=== PATIENT | female | born 1935 | race Caucasian/White ===

== ENCOUNTER 2016-05-31 21:00 | Inpatient (IN) | payer OTHER ==
[~2016-05-31] VITALS: Ht 172.7 cm; Wt 90.6 kg
[~2016-05-31 21:00] MED LIST: ACID CONTROL150 MG PO; ADVAIR 250/501 DISK IH; ADVAIR HFA120 INHAL1 IH; ASCORBIC ACID500 M3 PO; ASPIRIN81 M1 PO; ATENOLOL50 MG PO; ATORVASTATIN CA10 MG PO; CATAPRES0.1 MG PO; CEPHALEXIN250 MG PO; CIPRO250 MG PO; CLONIDINE HCL0.1 MG PO; COMBIVENT200 INHALA; COREG12.5 M1 PO; COUMADIN4 MG PO; COZAAR100 MG PO; CYMBALTA30 MG PO; CYMBALTA60 MG PO; Coumadin,Jantoven PO; DIOVAN320 MG; DIOVAN320 MG PO; DOCUSATE SODIU100 MG PO; FERROUS SULFAT325 MG PO; FIORICET,ESG1 TABLET PO; FORADIL AEROLI12 MCG IH; FORTAMET500 M1 PO; GABAPENTIN300 MG PO; GUANFACINE HCL E2 MG PO; HEPARIN SO5000 UNITS SC; HYDROCHLOROTHIA50 MG PO; INTUNIV2 MG PO; KEFLEX500 MG PO; LOSARTAN POTAS100 MG PO; METFORMIN HCL500 M1 PO; METFORMIN HCL500 MG; METFORMIN HCL500 MG PO; METOPROLOL SUCC50 MG PO; MIRALAX17 GM PO; MIRALAX255 GM PO; NIFEDIPINE ER30 MG PO; NORVASC10 MG PO; NYSTATIN15 GM TP; OMEPRAZOLE20 MG PO; PEPCID20 MG PO; PROAIR HFA8.5 GM IH; PROMETHAZINE12.5 M1 PO; Pepcid PO; SPIRIVA1 INHALATI; SPIRIVA1 INHALATI IH; TIZANIDINE HCL4 MG PO; TOPROL XL50 MG PO; TRAMADOL HCL50 MG PO; TRAZODONE HCL50 MG PO; TYLENOL EXTRA500 MG PO; ULTRAM50 MG PO; VITAMIN B-6100 MG PO; VITAMIN D31000 UNIT PO; WARFARIN SODIUM4 MG PO; WYGESIC,DARV1 TABLET PO; XANAX0.25 MG PO; XANAX0.5 MG; Xanax PO; ZANAFLEX4 MG PO
[2016-05-31 21:45] LABS: MCH 28.3 PG (29.0-34.0); MCHC 33.8 G/DL (30.0-36.0); MCV 83.9 FL (83-99); MEAN PLAT.VOLUME 10.8 uM^3 (9.5-12.4); PLATELET COUNT 258 K/uL (156-360); RBC DIS.WIDTH-CV 13.5 % (11.8-14.6); RBC DIS.WIDTH-SD 40.1 % (39-53); RED BLOOD COUNT 4.41 M/uL (3.80-5.20); WHITE BLOOD COUNT 8.1 K/uL (4.1-10.2)
[2016-05-31 22:03] LABS: CHLORIDE 92 mEq/L (99-109); POTASSIUM 4.3 mEq/L (3.7-5.4); SODIUM 127 mEq/L (136-147)
[2016-05-31 22:04] LABS: GLUCOSE 185 mg/dL (70-99)
[2016-05-31 22:06] LABS: ANION GAP 11 MEQ/L (2-14)
[2016-05-31 22:08] LABS: GFR ESTIMATE (CALCULATED) > 59 mL/min/; TROP-I INTERPRETATION NEGATIVE; TROPONIN-I 0.02 ng/mL (0.0-0.30)
[2016-05-31 22:09] LABS: UREA NITROGEN (BUN) 11 mg/dL (9-23)
[2016-06-01 01:00] LABS: INTER. NORMALIZED RATIO 1.2; PROTHROMBIN TIME 12.4 (9.2-11.2)
[2016-06-01] MEDS ORDERED: FEOSOL325 MG PO (01:28)
[2016-06-01] MEDS ORDERED: COUMADIN1 MG PO (01:29)
[2016-06-01] MEDS ORDERED: COREG25 M1 PO (01:30)
[2016-06-01] MEDS ORDERED: APRESOLINE25 MG PO (01:30)
[2016-06-01] MEDS ORDERED: PROCARDIA XL30 MG PO (01:31)
[2016-06-01] MEDS ORDERED: FLONASE16 G1 BOTH NARES (01:32)
[2016-06-01] MEDS ORDERED: ROBAXIN500 MG PO (01:32)
[2016-06-01] MEDS ORDERED: ARTIFICIAL TEAR15 M6 BOTH EYES (01:35)
[2016-06-01] MEDS ORDERED: TYLENOL EXTRA500 MG PO (01:36)
[2016-06-01] MEDS ORDERED: COLACE100 MG PO (01:37)
[2016-06-01] MEDS ORDERED: NYSTATIN15 GM TP (01:39)
[2016-06-01] MEDS ORDERED: METFORMIN HCL500 M1 PO (01:39)
[2016-06-01 07:31] VITALS: BP 131/69
[2016-06-01 07:57] LABS: POINT-OF-CARE METER ID UU14174225
[2016-06-01 11:10] LABS: POINT-OF-CARE METER ID UU14174225
[2016-06-01 11:12] VITALS: BP 152/79
[2016-06-01 13:30] LABS: ANION GAP 7 MEQ/L (2-14); CHLORIDE 92 MEQ/L (99-109); GFR ESTIMATE (CALCULATED) > 59 mL/min/; GLUCOSE 155 mg/dL (70-99); POTASSIUM 4.3 MEQ/L (3.7-5.4); SAMPLE HEMOLYSIS CHECK 0; SAMPLE ICTERIC CHECK 0; SAMPLE LIPEMIA CHECK 0; SODIUM 124 MEQ/L (136-147); UREA NITROGEN (BUN) 9 mg/dL (9-23)
[2016-06-01 15:06] VITALS: BP 139/67
[2016-06-01 16:08] LABS: ANION GAP 6 MEQ/L (2-14); CHLORIDE 93 MEQ/L (99-109); GFR ESTIMATE (CALCULATED) > 59 mL/min/; GLUCOSE 150 mg/dL (70-99); POTASSIUM 4.2 MEQ/L (3.7-5.4); SAMPLE HEMOLYSIS CHECK 1; SAMPLE ICTERIC CHECK 0; SAMPLE LIPEMIA CHECK 0; SODIUM 124 MEQ/L (136-147); UREA NITROGEN (BUN) 9 mg/dL (9-23)
[2016-06-01 16:19] LABS: POINT-OF-CARE METER ID UU14174225
[2016-06-01 20:00] VITALS: BP 155/69
[2016-06-01 22:12] LABS: POINT-OF-CARE METER ID UU14174225
[2016-06-02] VITALS: BP 139/70
[2016-06-02 04:00] VITALS: BP 135/62
[2016-06-02 07:16] VITALS: BP 174/77
[2016-06-02 07:33] LABS: POINT-OF-CARE METER ID UU14188625
[2016-06-02 07:56] LABS: EOSINOPHIL (%) 0.2 % (0-5); HEMATOCRIT 31.5 % (36.0-46.0); IMMATURE GRANULOCYTE (%) 0.2 % (0.0-0.7); LYMPHOCYTE COUNT 1.4 K/uL (1.0-2.8); MCH 28.6 PG (29.0-34.0); MCHC 33.7 G/DL (30.0-36.0); MCV 85.1 FL (83-99); MEAN PLAT.VOLUME 11.1 uM^3 (9.5-12.4); MONOCYTE (%) 9.6 % (3-12); MONOCYTE COUNT 0.5 K/uL (0-0.8); NEUTROPHIL (%) 63.2 % (45-76); NEUTROPHIL COUNT 3.4 K/uL (1.8-6.4); PLATELET COUNT 230 K/uL (156-360); RBC DIS.WIDTH-CV 13.7 % (11.8-14.6); RBC DIS.WIDTH-SD 42.3 % (39-53)
[2016-06-02 07:57] LABS: WHITE BLOOD COUNT 5.4 K/uL (4.1-10.2)
[2016-06-02 08:01] LABS: ANION GAP 6 MEQ/L (2-14); CHLORIDE 97 MEQ/L (99-109); GFR ESTIMATE (CALCULATED) > 59 mL/min/; GLUCOSE 123 mg/dL (70-99); POTASSIUM 3.9 MEQ/L (3.7-5.4); SAMPLE HEMOLYSIS CHECK 0; SAMPLE ICTERIC CHECK 0; SAMPLE LIPEMIA CHECK 0; SODIUM 128 MEQ/L (136-147); UREA NITROGEN (BUN) 10 mg/dL (9-23)
[2016-06-02 11:01] VITALS: BP 171/75
[2016-06-02 11:11] LABS: POINT-OF-CARE METER ID UU14174225
[2016-06-02 14:58] VITALS: BP 174/81
[2016-06-02 16:09] LABS: POINT-OF-CARE METER ID UU14174225
[2016-06-02 20:31] VITALS: BP 220/90
[2016-06-02 22:01] LABS: POINT-OF-CARE METER ID UU14174225
[2016-06-03] VITALS (7 sets, daily range): BP systolic 110–180; BP diastolic 58–92
[2016-06-03 06:59] LABS: ANION GAP 8 MEQ/L (2-14); CHLORIDE 98 MEQ/L (99-109); GFR ESTIMATE (CALCULATED) > 59 mL/min/; GLUCOSE 139 mg/dL (70-99); POTASSIUM 4.4 MEQ/L (3.7-5.4); SAMPLE HEMOLYSIS CHECK 1; SAMPLE ICTERIC CHECK 0; SAMPLE LIPEMIA CHECK 0; SODIUM 132 MEQ/L (136-147); UREA NITROGEN (BUN) 8 mg/dL (9-23)
[2016-06-03 08:18] LABS: HEMATOCRIT 33.8 % (36.0-46.0); MCH 28.5 PG (29.0-34.0); MCHC 33.4 G/DL (30.0-36.0); MCV 85.1 FL (83-99); MEAN PLAT.VOLUME 11.7 uM^3 (9.5-12.4); PLATELET COUNT 214 K/uL (156-360); RBC DIS.WIDTH-CV 13.8 % (11.8-14.6); RBC DIS.WIDTH-SD 42.6 % (39-53); RED BLOOD COUNT 3.97 M/uL (3.80-5.20); WHITE BLOOD COUNT 5.9 K/uL (4.1-10.2)
[2016-06-03 12:38] LABS: POINT-OF-CARE METER ID UU14174225
[2016-06-03 15:17] LABS: INTER. NORMALIZED RATIO 1.3; PROTHROMBIN TIME 12.8 (9.2-11.2)
[2016-06-03 22:04] LABS: POINT-OF-CARE METER ID UU14174225; POINT-OF-CARE USER ID 603211116
[2016-06-04 04:50] VITALS: BP 141/78
[2016-06-04 07:05] LABS: HEMATOCRIT 33.5 % (36.0-46.0); MCH 28.9 PG (29.0-34.0); MCHC 33.7 G/DL (30.0-36.0); MCV 85.7 FL (83-99); MEAN PLAT.VOLUME 10.6 uM^3 (9.5-12.4); PLATELET COUNT 229 K/uL (156-360); RBC DIS.WIDTH-CV 13.8 % (11.8-14.6); RBC DIS.WIDTH-SD 42.8 % (39-53); RED BLOOD COUNT 3.91 M/uL (3.80-5.20); WHITE BLOOD COUNT 5.7 K/uL (4.1-10.2)
[2016-06-04 07:16] LABS: INTER. NORMALIZED RATIO 1.3; PROTHROMBIN TIME 12.9 (9.2-11.2)
[2016-06-04 07:28] LABS: ANION GAP 9 MEQ/L (2-14); CHLORIDE 94 MEQ/L (99-109); GFR ESTIMATE (CALCULATED) > 59 mL/min/; GLUCOSE 113 mg/dL (70-99); POTASSIUM 4.1 MEQ/L (3.7-5.4); SAMPLE HEMOLYSIS CHECK 0; SAMPLE ICTERIC CHECK 0; SAMPLE LIPEMIA CHECK 0; SODIUM 134 MEQ/L (136-147); UREA NITROGEN (BUN) 8 mg/dL (9-23)
[2016-06-04 07:43] VITALS: BP 157/73
[2016-06-04 11:29] LABS: POINT-OF-CARE METER ID UU14174225
[2016-06-04 12:33] VITALS: BP 101/52
[2016-06-04] MEDS ORDERED: WARFARIN SODIUM1 MG PO (15:03)
[2016-06-04] MEDS ORDERED: METRONIDAZOLE500 MG PO (15:03)
[2016-06-04] MEDS ORDERED: LOVENOX40 MG/0.4 SC (15:03)
== END 2016-06-04 16:35 | disposition home health service (06) | DRG 641 ==
LOC: EME 21:00 → 5SOUTH 06-01 05:38 → EDOF 06-01 05:38 → 5SOUTH 06-01 07:01
PROVIDERS: Hospitalist; Physician Assistant; Student in an Organized Health Care Education/Training Program
DX: E87.1 Hypo-osmolality and hyponatremia (principal); J44.0 Chronic obstructive pulmonary disease with (acute) lower respiratory infection; J20.9 Acute bronchitis, unspecified; E86.0 Dehydration; R41.82 Altered mental status, unspecified; I10 Essential (primary) hypertension; I25.10 Atherosclerotic heart disease of native coronary artery without angina pectoris; Z95.5 Presence of coronary angioplasty implant and graft; E78.5 Hyperlipidemia, unspecified; Z96.642 Presence of left artificial hip joint; E11.9 Type 2 diabetes mellitus without complications; R11.2 Nausea with vomiting, unspecified; F32.9 Major depressive disorder, single episode, unspecified; G43.909 Migraine, unspecified, not intractable, without status migrainosus; K59.00 Constipation, unspecified
CPT/HCPCS: 70450; 71020; 74176; 80048; 80048 91; 81003; 82948; 84484; 85025; 85027; 85610; 87493; 93005; 97530 GP; 99202; 99281; 99285; J0360; J1170; J1644; J1815; J2270; J2405; J7030; S0028; S0030

== ENCOUNTER 2016-06-13 13:06 | Inpatient (IN) | payer OTHER ==
[~2016-06-13] VITALS: Ht 162.6 cm; Wt 87.0 kg
[~2016-06-13 13:06] MED LIST changes: +APRESOLINE25 MG PO; +ARTIFICIAL TEAR15 M6 BOTH EYES; +COLACE100 MG PO; +COREG25 M1 PO; +COUMADIN1 MG PO; +FEOSOL325 MG PO; +FLONASE16 G1 BOTH NARES; +LOVENOX40 MG/0.4 SC; +METRONIDAZOLE500 MG PO; +PROCARDIA XL30 MG PO; +ROBAXIN500 MG PO; +WARFARIN SODIUM1 MG PO
[2016-06-13 13:59] LABS: HEMATOCRIT 35.3 % (36.0-46.0); MCHC 33.7 G/DL (30.0-36.0); MCV 86.1 FL (83-99); MEAN PLAT.VOLUME 10.5 uM^3 (9.5-12.4); PLATELET COUNT 272 K/uL (156-360); RBC DIS.WIDTH-CV 14.5 % (11.8-14.6); RBC DIS.WIDTH-SD 44.6 % (39-53); WHITE BLOOD COUNT 5.5 K/uL (4.1-10.2)
[2016-06-13 14:22] LABS: CHLORIDE 98 mEq/L (99-109); POTASSIUM 5.1 mEq/L (3.7-5.4); SODIUM 130 mEq/L (136-147)
[2016-06-13 14:23] LABS: MAGNESIUM 2.2 mg/dL (1.3-2.7)
[2016-06-13 14:24] LABS: GLUCOSE 160 mg/dL (70-99)
[2016-06-13 14:25] LABS: ANION GAP 10 MEQ/L (2-14)
[2016-06-13 14:28] LABS: GFR ESTIMATE (CALCULATED) > 59 mL/min/; UREA NITROGEN (BUN) 19 mg/dL (9-23)
[2016-06-13 14:29] LABS: TROP-I INTERPRETATION NEGATIVE; TROPONIN-I < 0.01 ng/mL (0.0-0.30)
[2016-06-13 14:34] LABS: ADD MIUA? YES; BILIRUBIN NEGATIVE; BLOOD NEGATIVE; COLOR YELLOW ((YELLOW)); GLUCOSE (STRIP) NEGATIVE; KETONES NEGATIVE; LEUKOCYTES NEGATIVE; NITRITE NEGATIVE; PROTEIN (STRIP) NEGATIVE; SPECIFIC GRAVITY 1.017 (1.000-1.030); UROBILINOGEN 0.2 MG/DL (0.2-1.0)
[2016-06-13 14:40] LABS: BACTERIA NONE SEEN /HPF; EPITHELIAL CELLS 1+ /HPF; MUCUS NONE SEEN /LPF; RED BLOOD CELLS 0-5 /HPF (0-5); UCUL ADDED? NO; WHITE BLOOD CELLS 0-5 /HPF (0-5)
[2016-06-13 19:04] LABS: INFLUENZA A VIRAL ANTIGEN NEGATIVE; INFLUENZA B VIRAL ANTIGEN NEGATIVE
[2016-06-14] VITALS (11 sets, daily range): BP systolic 116–203; BP diastolic 60–94
[2016-06-14 01:49] LABS: INTER. NORMALIZED RATIO 1.2; PROTHROMBIN TIME 12.1 (9.2-11.2)
[2016-06-14 03:13] LABS: METH RESISTANT S AUREUS PCR POSITIVE (NEGATIVE)
[2016-06-14 03:19] LABS: PROBE CHECK PASS
[2016-06-14 06:11] LABS: ANION GAP 8 MEQ/L (2-14); CHLORIDE 94 MEQ/L (99-109); GFR ESTIMATE (CALCULATED) > 59 mL/min/; GLUCOSE 186 mg/dL (70-99); POTASSIUM 4.7 MEQ/L (3.7-5.4); SAMPLE HEMOLYSIS CHECK 0; SAMPLE ICTERIC CHECK 0; SAMPLE LIPEMIA CHECK 0; SODIUM 130 MEQ/L (136-147); UREA NITROGEN (BUN) 13 mg/dL (9-23)
[2016-06-14 08:40] LABS: INTER. NORMALIZED RATIO 1.2; PROTHROMBIN TIME 11.9 (9.2-11.2)
[2016-06-14 09:54] LABS: Estimated Average Glucose 169 mg/dL (70-123); HEMOGLOBIN A1c (GLYCOHEMOGLOB) 7.5 % HGB (Below 5.7)
[2016-06-14 10:24] LABS: TROP-I INTERPRETATION NEGATIVE; TROPONIN-I 0.02 ng/mL (0.0-0.30)
[2016-06-14 14:41] LABS: ANION GAP 8 MEQ/L (2-14); CHLORIDE 97 MEQ/L (99-109); GFR ESTIMATE (CALCULATED) > 59 mL/min/; GLUCOSE 171 mg/dL (70-99); POTASSIUM 3.9 MEQ/L (3.7-5.4); SAMPLE HEMOLYSIS CHECK 0; SAMPLE ICTERIC CHECK 0; SAMPLE LIPEMIA CHECK 0; SODIUM 129 MEQ/L (136-147); UREA NITROGEN (BUN) 18 mg/dL (9-23)
[2016-06-14 18:03] LABS: POINT-OF-CARE METER ID UU14174225
[2016-06-14 23:43] LABS: POINT-OF-CARE METER ID UU14188625
[2016-06-15] VITALS (8 sets, daily range): BP systolic 130–191; BP diastolic 65–85
[2016-06-15 07:44] LABS: EOSINOPHIL (%) 0 % (0-5); HEMATOCRIT 36.6 % (36.0-46.0); IMMATURE GRANULOCYTE (%) 0.1 % (0.0-0.7); LYMPHOCYTE COUNT 1.8 K/uL (1.0-2.8); MCH 29.3 PG (29.0-34.0); MCHC 33.3 G/DL (30.0-36.0); MCV 87.8 FL (83-99); MEAN PLAT.VOLUME 10.6 uM^3 (9.5-12.4); MONOCYTE (%) 7.6 % (3-12); MONOCYTE COUNT 0.5 K/uL (0-0.8); NEUTROPHIL (%) 65.2 % (45-76); NEUTROPHIL COUNT 4.5 K/uL (1.8-6.4); PLATELET COUNT 316 K/uL (156-360); RBC DIS.WIDTH-CV 14.8 % (11.8-14.6); RBC DIS.WIDTH-SD 47.3 % (39-53); RED BLOOD COUNT 4.17 M/uL (3.80-5.20); WHITE BLOOD COUNT 6.9 K/uL (4.1-10.2)
[2016-06-15 08:04] LABS: INTER. NORMALIZED RATIO 1.2; PROTHROMBIN TIME 12.3 (9.2-11.2)
[2016-06-15 08:09] LABS: ALKALINE PHOSPHATASE 94 IU/L (3-129); ANION GAP 9 MEQ/L (2-14); CHLORIDE 101 MEQ/L (99-109); GFR ESTIMATE (CALCULATED) > 59 mL/min/; GLUCOSE 162 mg/dL (70-99); POTASSIUM 4.2 MEQ/L (3.7-5.4); SAMPLE HEMOLYSIS CHECK 0; SAMPLE ICTERIC CHECK 0; SAMPLE LIPEMIA CHECK 0; SODIUM 135 MEQ/L (136-147); TOTAL BILIRUBIN 0.3 MG/DL (0.0-1.0); UREA NITROGEN (BUN) 12 mg/dL (9-23)
[2016-06-16] VITALS (7 sets, daily range): BP systolic 138–194; BP diastolic 65–110
[2016-06-16 07:19] LABS: HEMATOCRIT 39.6 % (36.0-46.0); MCH 29.6 PG (29.0-34.0); MCHC 33.6 G/DL (30.0-36.0); MCV 88.2 FL (83-99); MEAN PLAT.VOLUME 10.6 uM^3 (9.5-12.4); PLATELET COUNT 323 K/uL (156-360); RBC DIS.WIDTH-CV 14.8 % (11.8-14.6); RBC DIS.WIDTH-SD 47.3 % (39-53); RED BLOOD COUNT 4.49 M/uL (3.80-5.20); WHITE BLOOD COUNT 7.6 K/uL (4.1-10.2)
[2016-06-16 07:45] LABS: ANION GAP 10 MEQ/L (2-14); CHLORIDE 98 MEQ/L (99-109); GFR ESTIMATE (CALCULATED) > 59 mL/min/; GLUCOSE 164 mg/dL (70-99); POTASSIUM 4.1 MEQ/L (3.7-5.4); SAMPLE HEMOLYSIS CHECK 0; SAMPLE ICTERIC CHECK 0; SAMPLE LIPEMIA CHECK 0; SODIUM 137 MEQ/L (136-147); UREA NITROGEN (BUN) 10 mg/dL (9-23)
[2016-06-16 07:46] LABS: INTER. NORMALIZED RATIO 1.1; PROTHROMBIN TIME 11.6 (9.2-11.2)
[2016-06-17 03:39] VITALS: BP 130/69
[2016-06-17 07:29] LABS: INTER. NORMALIZED RATIO 1.1; PROTHROMBIN TIME 11.4 (9.2-11.2)
[2016-06-17 07:54] VITALS: BP 148/66
[2016-06-17 08:07] LABS: POINT-OF-CARE METER ID UU14174225
[2016-06-17 11:31] VITALS: BP 150/67
[2016-06-17 16:14] VITALS: BP 136/72
[2016-06-17 20:05] VITALS: BP 151/76
[2016-06-18] VITALS (7 sets, daily range): BP systolic 126–165; BP diastolic 58–76
[2016-06-18 06:54] LABS: INTER. NORMALIZED RATIO 1.1; PROTHROMBIN TIME 10.9 (9.2-11.2)
[2016-06-18 07:25] LABS: HEMATOCRIT 35.7 % (36.0-46.0); MCH 27.9 PG (29.0-34.0); MCHC 31.7 G/DL (30.0-36.0); MCV 88.1 FL (83-99); RBC DIS.WIDTH-SD 48.2 % (39-53); RED BLOOD COUNT 4.05 M/uL (3.80-5.20)
[2016-06-18 07:30] LABS: MEAN PLAT.VOLUME 10.5 uM^3 (9.5-12.4); PLATELET COUNT 292 K/uL (156-360)
[2016-06-18 07:56] LABS: ANION GAP 12 MEQ/L (2-14); CHLORIDE 102 MEQ/L (99-109); GFR ESTIMATE (CALCULATED) > 59 mL/min/; GLUCOSE 147 mg/dL (70-99); POTASSIUM 4.9 MEQ/L (3.7-5.4); SAMPLE HEMOLYSIS CHECK 0; SAMPLE ICTERIC CHECK 0; SAMPLE LIPEMIA CHECK 0; SODIUM 135 MEQ/L (136-147)
[2016-06-18 07:57] LABS: UREA NITROGEN (BUN) 21 mg/dL (9-23)
[2016-06-18 16:42] LABS: POINT-OF-CARE METER ID UU13113675; POINT-OF-CARE USER ID ADMSLT55
[2016-06-18 18:28] LABS: POINT-OF-CARE METER ID UU14149397
[2016-06-18 22:16] LABS: POINT-OF-CARE METER ID UU14188577
[2016-06-19] VITALS (7 sets, daily range): BP systolic 115–161; BP diastolic 56–72
[2016-06-19 05:39] LABS: INTER. NORMALIZED RATIO 1.1; PROTHROMBIN TIME 11.3 (9.2-11.2)
[2016-06-19 05:39] LABS: EOSINOPHIL (%) 0 % (0-5); HEMATOCRIT 32.2 % (36.0-46.0); IMMATURE GRANULOCYTE (%) 0.3 % (0.0-0.7); LYMPHOCYTE COUNT 1.8 K/uL (1.0-2.8); MCHC 31.4 G/DL (30.0-36.0); MCV 89.2 FL (83-99); MEAN PLAT.VOLUME 10.3 uM^3 (9.5-12.4); MONOCYTE (%) 8.2 % (3-12); MONOCYTE COUNT 0.5 K/uL (0-0.8); NEUTROPHIL (%) 62.2 % (45-76); NEUTROPHIL COUNT 3.8 K/uL (1.8-6.4); PLATELET COUNT 253 K/uL (156-360); RBC DIS.WIDTH-SD 48.8 % (39-53); RED BLOOD COUNT 3.61 M/uL (3.80-5.20); WHITE BLOOD COUNT 6.1 K/uL (4.1-10.2)
[2016-06-19 05:50] LABS: TROP-I INTERPRETATION NEGATIVE; TROPONIN-I 0.02 ng/mL (0.0-0.30)
[2016-06-19 06:03] LABS: ANION GAP 7 MEQ/L (2-14); CHLORIDE 102 MEQ/L (99-109); GFR ESTIMATE (CALCULATED) > 59 mL/min/; GLUCOSE 151 mg/dL (70-99); POTASSIUM 4.9 MEQ/L (3.7-5.4); SAMPLE HEMOLYSIS CHECK 0; SAMPLE ICTERIC CHECK 0; SAMPLE LIPEMIA CHECK 0; SODIUM 136 MEQ/L (136-147); UREA NITROGEN (BUN) 21 mg/dL (9-23)
[2016-06-19 06:29] LABS: POINT-OF-CARE METER ID UU14188577
[2016-06-19 11:44] LABS: POINT-OF-CARE METER ID UU14149397
[2016-06-19 17:05] LABS: POINT-OF-CARE METER ID UU14188577
[2016-06-19 21:24] LABS: POINT-OF-CARE METER ID UU14188577
[2016-06-20] VITALS (8 sets, daily range): BP systolic 130–188; BP diastolic 58–81
[2016-06-20 05:29] LABS: HEMATOCRIT 32.3 % (36.0-46.0); MCH 28.2 PG (29.0-34.0); MCHC 31.3 G/DL (30.0-36.0); MCV 90.2 FL (83-99); MEAN PLAT.VOLUME 10.5 uM^3 (9.5-12.4); PLATELET COUNT 237 K/uL (156-360); RBC DIS.WIDTH-CV 14.9 % (11.8-14.6); RBC DIS.WIDTH-SD 48.8 % (39-53); RED BLOOD COUNT 3.58 M/uL (3.80-5.20); WHITE BLOOD COUNT 4.8 K/uL (4.1-10.2)
[2016-06-20 05:46] LABS: INTER. NORMALIZED RATIO 1.1; PROTHROMBIN TIME 11.1 (9.2-11.2)
[2016-06-20 06:11] LABS: ANION GAP 6 MEQ/L (2-14); CHLORIDE 101 MEQ/L (99-109); GFR ESTIMATE (CALCULATED) > 59 mL/min/; GLUCOSE 160 mg/dL (70-99); POTASSIUM 4.8 MEQ/L (3.7-5.4); SAMPLE HEMOLYSIS CHECK 0; SAMPLE ICTERIC CHECK 0; SAMPLE LIPEMIA CHECK 0; SODIUM 134 MEQ/L (136-147); UREA NITROGEN (BUN) 19 mg/dL (9-23)
[2016-06-20 11:55] LABS: POINT-OF-CARE METER ID UU14149397
[2016-06-20 17:09] LABS: POINT-OF-CARE METER ID UU14149397
[2016-06-21 04:00] VITALS: BP 145/80
[2016-06-21 04:23] VITALS: BP 145/80; BP 188/79
[2016-06-21 06:04] LABS: INTER. NORMALIZED RATIO 1.1; PROTHROMBIN TIME 10.8 (9.2-11.2)
[2016-06-21 06:25] LABS: POINT-OF-CARE METER ID UU14149397
[2016-06-21 08:00] VITALS: BP 130/80
[2016-06-21 08:46] LABS: HEMATOCRIT 31.6 % (36.0-46.0); MCH 28.4 PG (29.0-34.0); MCHC 31.3 G/DL (30.0-36.0); MCV 90.8 FL (83-99); MEAN PLAT.VOLUME 11.3 uM^3 (9.5-12.4); PLATELET COUNT 248 K/uL (156-360); RBC DIS.WIDTH-CV 14.8 % (11.8-14.6); RBC DIS.WIDTH-SD 48.9 % (39-53); RED BLOOD COUNT 3.48 M/uL (3.80-5.20); WHITE BLOOD COUNT 5.2 K/uL (4.1-10.2)
[2016-06-21 09:01] LABS: ANION GAP 5 MEQ/L (2-14); CHLORIDE 100 MEQ/L (99-109); GFR ESTIMATE (CALCULATED) > 59 mL/min/; GLUCOSE 143 mg/dL (70-99); POTASSIUM 4.6 MEQ/L (3.7-5.4); SAMPLE HEMOLYSIS CHECK 0; SAMPLE ICTERIC CHECK 0; SAMPLE LIPEMIA CHECK 0; SODIUM 138 MEQ/L (136-147); UREA NITROGEN (BUN) 15 mg/dL (9-23)
[2016-06-21 12:00] VITALS: BP 136/74
[2016-06-21] MEDS ORDERED: BENADRYL25 MG PO (12:16)
[2016-06-21] MEDS ORDERED: ENDOCET 5-3251 EACH PO (12:24)
[2016-06-21] MEDS ORDERED: LIDOCAINE700 MG TD (12:24)
[2016-06-21] MEDS ORDERED: OXYCONTIN10 MG PO (12:24)
== END 2016-06-21 14:43 | DRG 982 ==
LOC: EME 13:06 → 3EAST 06-14 00:37 → EDOF 06-14 00:37 → 4WEST 06-14 00:37 → 5SOUTH 06-14 00:37 → 4WEST 06-14 01:54 → 5SOUTH 06-14 17:39 → 3EAST 06-18 17:40
PROVIDERS: Emergency Medicine; Family Medicine; Hospitalist; Internal Medicine; Nurse Practitioner Adult Health; Physician Assistant; Physician Assistant Medical
PROC: 0QU03JZ Supplement Lumbar Vertebra with Synthetic Substitute, Percutaneous Approach (ICD-10-PCS; principal; 2016-06-18)
DX: I16.0 Hypertensive urgency (principal); M80.88XA Other osteoporosis with current pathological fracture, vertebra(e), initial encounter for fracture; E87.1 Hypo-osmolality and hyponatremia; F33.9 Major depressive disorder, recurrent, unspecified; D62 Acute posthemorrhagic anemia; J44.9 Chronic obstructive pulmonary disease, unspecified; I25.10 Atherosclerotic heart disease of native coronary artery without angina pectoris; E11.22 Type 2 diabetes mellitus with diabetic chronic kidney disease; N18.9 Chronic kidney disease, unspecified; I12.9 Hypertensive chronic kidney disease with stage 1 through stage 4 chronic kidney disease, or unspecified chronic kidney disease; G43.909 Migraine, unspecified, not intractable, without status migrainosus; E78.5 Hyperlipidemia, unspecified; K59.00 Constipation, unspecified; F41.9 Anxiety disorder, unspecified; Z91.040 Latex allergy status; M54.5 Low back pain; E66.9 Obesity, unspecified; Z95.5 Presence of coronary angioplasty implant and graft; Z96.652 Presence of left artificial knee joint; Z88.2 Allergy status to sulfonamides; Z88.3 Allergy status to other anti-infective agents; Z86.711 Personal history of pulmonary embolism; Z79.84 Long term (current) use of oral hypoglycemic drugs; Z79.01 Long term (current) use of anticoagulants; Z68.32 Body mass index [BMI] 32.0-32.9, adult; Z79.82 Long term (current) use of aspirin; Z80.0 Family history of malignant neoplasm of digestive organs; Z82.49 Family history of ischemic heart disease and other diseases of the circulatory system
CPT/HCPCS: 70450; 72132; 72148; 74177; 80048; 80048 91; 80053; 81003; 82948; 83036; 83735; 84484; 85025; 85027; 85610; 87502; 87641; 93005; 94799; 97530 GP; 99202; 99281; 99285; J0330; J0360; J0690; J1170; J1644; J1650; J1815; J1885; J2060; J2270; J2405; J3010; J7030; J7120

== ENCOUNTER 2016-08-28 09:28 | Inpatient (IN) | payer OTHER ==
[~2016-08-28] VITALS: Ht 162.6 cm; Wt 90.3 kg
[~2016-08-28 09:28] MED LIST changes: +BENADRYL25 MG PO; +ENDOCET 5-3251 EACH PO; +LIDOCAINE700 MG TD; +OXYCONTIN10 MG PO
[2016-08-28 10:05] LABS: HEMATOCRIT 38.6 % (36.0-46.0); MCH 29.4 PG (29.0-34.0); MCHC 32.6 G/DL (30.0-36.0); MCV 90.2 FL (83-99); MEAN PLAT.VOLUME 10.5 uM^3 (9.5-12.4); PLATELET COUNT 235 K/uL (156-360); RBC DIS.WIDTH-CV 13.7 % (11.8-14.6); RBC DIS.WIDTH-SD 45.3 % (39-53); RED BLOOD COUNT 4.28 M/uL (3.80-5.20); WHITE BLOOD COUNT 6.3 K/uL (4.1-10.2)
[2016-08-28 10:18] LABS: CHLORIDE 97 mEq/L (99-109); POTASSIUM 4.2 mEq/L (3.7-5.4); SODIUM 133 mEq/L (136-147)
[2016-08-28 10:19] LABS: GLUCOSE 195 mg/dL (70-99)
[2016-08-28 10:21] LABS: ANION GAP 12 MEQ/L (2-14)
[2016-08-28 10:23] LABS: GFR ESTIMATE (CALCULATED) > 59 mL/min/
[2016-08-28 10:24] LABS: UREA NITROGEN (BUN) 9 mg/dL (9-23)
[2016-08-28 10:45] LABS: TROP-I INTERPRETATION NEGATIVE; TROPONIN-I < 0.01 ng/mL (0.0-0.30)
[2016-08-28 11:22] LABS: ADD MIUA? YES; BILIRUBIN NEGATIVE; BLOOD NEGATIVE; COLOR STRAW ((YELLOW)); GLUCOSE (STRIP) 50; KETONES NEGATIVE; LEUKOCYTES NEGATIVE; NITRITE NEGATIVE; PROTEIN (STRIP) 100; UROBILINOGEN 0.2 MG/DL (0.2-1.0)
[2016-08-28 11:25] LABS: BACTERIA NONE SEEN /HPF; EPITHELIAL CELLS RARE /HPF; MUCUS TRACE /LPF; RED BLOOD CELLS 0-5 /HPF (0-5); UCUL ADDED? NO; WHITE BLOOD CELLS 0-5 /HPF (0-5)
[2016-08-28] MEDS ORDERED: WARFARIN SODIUM6 MG PO (15:06)
[2016-08-28] MEDS ORDERED: CLONIDINE HCL0.1 MG PO (15:07)
[2016-08-28] MEDS ORDERED: TRAMADOL HCL50 MG PO (15:08)
[2016-08-28] MEDS ORDERED: ALPRAZOLAM0.25 M2 PO (15:09)
[2016-08-28] MEDS ORDERED: METFORMIN HCL500 MG PO (15:10)
[2016-08-28] MEDS ORDERED: SYMBICORT60 INHALAT IH (15:11)
[2016-08-28 16:13] LABS: INTER. NORMALIZED RATIO 2.1; PROTHROMBIN TIME 21.9 (9.2-11.2)
[2016-08-28 16:24] VITALS: BP 203/85
[2016-08-28 16:52] LABS: POINT-OF-CARE METER ID UU13113781; POINT-OF-CARE USER ID ENVKC36
[2016-08-28 18:24] VITALS: BP 152/71
[2016-08-28 19:10] VITALS: BP 159/73
[2016-08-28 20:39] LABS: TROP-I INTERPRETATION NEGATIVE; TROPONIN-I < 0.01 ng/mL (0.0-0.30)
[2016-08-28 20:43] LABS: POINT-OF-CARE METER ID UU13113781
[2016-08-28 23:57] VITALS: BP 98/55
[2016-08-29] VITALS (7 sets, daily range): BP systolic 92–173; BP diastolic 49–78
[2016-08-29 05:26] LABS: INTER. NORMALIZED RATIO 1.9; PROTHROMBIN TIME 19.3 (9.2-11.2)
[2016-08-29 05:29] LABS: TROP-I INTERPRETATION NEGATIVE; TROPONIN-I 0.01 ng/mL (0.0-0.30)
[2016-08-29 06:22] LABS: ANION GAP 10 MEQ/L (2-14); CHLORIDE 93 MEQ/L (99-109); GFR ESTIMATE (CALCULATED) 38 mL/min/; POTASSIUM 3.7 MEQ/L (3.7-5.4); SAMPLE HEMOLYSIS CHECK 0; SAMPLE ICTERIC CHECK 0; SAMPLE LIPEMIA CHECK 0; SODIUM 131 MEQ/L (136-147); UREA NITROGEN (BUN) 14 mg/dL (9-23)
[2016-08-29 06:24] LABS: GLUCOSE 117 mg/dL (70-99)
[2016-08-29 08:00] LABS: POINT-OF-CARE METER ID UU13113781
[2016-08-29 11:22] LABS: POINT-OF-CARE METER ID UU13113781
[2016-08-30 03:30] VITALS: BP 160/74
[2016-08-30 07:57] LABS: EOSINOPHIL (%) 0 % (0-5); HEMATOCRIT 30.8 % (36.0-46.0); IMMATURE GRANULOCYTE (%) 0.2 % (0.0-0.7); INSTRUMENT ABS NEUTROPHIL CT 3.2 K/uL; LYMPHOCYTE COUNT 2.2 K/uL (1.0-2.8); MCH 30.9 PG (29.0-34.0); MCHC 33.8 G/DL (30.0-36.0); MCV 91.4 FL (83-99); MEAN PLAT.VOLUME 11.2 uM^3 (9.5-12.4); MONOCYTE (%) 10.4 % (3-12); MONOCYTE COUNT 0.6 K/uL (0-0.8); NEUTROPHIL (%) 53.4 % (45-76); NEUTROPHIL COUNT 3.2 K/uL (1.8-6.4); NRBC (%) 0.3 /100 WBC (0-0); PLATELET COUNT 214 K/uL (156-360); RBC DIS.WIDTH-CV 13.6 % (11.8-14.6); RBC DIS.WIDTH-SD 45.5 % (39-53); WHITE BLOOD COUNT 6.1 K/uL (4.1-10.2)
[2016-08-30 07:58] LABS: RED BLOOD COUNT 3.37 M/uL (3.80-5.20)
[2016-08-30 08:20] VITALS: BP 185/81
[2016-08-30 08:20] LABS: ANION GAP 8 MEQ/L (2-14); CHLORIDE 100 MEQ/L (99-109); POTASSIUM 4.2 MEQ/L (3.7-5.4); SAMPLE HEMOLYSIS CHECK 0; SAMPLE ICTERIC CHECK 0; SAMPLE LIPEMIA CHECK 0; SODIUM 132 MEQ/L (136-147)
[2016-08-30 08:31] LABS: INTER. NORMALIZED RATIO 2.1; PROTHROMBIN TIME 22.4 (9.2-11.2)
[2016-08-30 08:37] LABS: GFR ESTIMATE (CALCULATED) > 59 mL/min/; GLUCOSE 135 mg/dL (70-99); UREA NITROGEN (BUN) 19 mg/dL (9-23)
== END 2016-08-30 14:48 | disposition home health service (06) | DRG 305 ==
LOC: EME 09:28 → EDOF 14:50 → 4EAST 14:50
PROVIDERS: Emergency Medicine; Hospitalist; Internal Medicine
DX: I16.0 Hypertensive urgency (principal); J44.9 Chronic obstructive pulmonary disease, unspecified; G44.89 Other headache syndrome; R10.32 Left lower quadrant pain; R11.2 Nausea with vomiting, unspecified; E11.9 Type 2 diabetes mellitus without complications; I25.10 Atherosclerotic heart disease of native coronary artery without angina pectoris; F41.9 Anxiety disorder, unspecified; E78.5 Hyperlipidemia, unspecified; M19.90 Unspecified osteoarthritis, unspecified site; G89.29 Other chronic pain; M54.5 Low back pain; Z96.652 Presence of left artificial knee joint; Z68.32 Body mass index [BMI] 32.0-32.9, adult; Z90.710 Acquired absence of both cervix and uterus; Z86.711 Personal history of pulmonary embolism; Z86.718 Personal history of other venous thrombosis and embolism; Z79.01 Long term (current) use of anticoagulants
CPT/HCPCS: 70450; 80048; 81003; 82948; 84484; 85025; 85027; 85610; 93005; 93970; 94640 76; 99281; 99285; J0360; J1815; J2405; J3010; J7030; J7040; J7050

== ENCOUNTER 2016-10-15 15:04 | Inpatient (IN) | payer OTHER ==
[~2016-10-15] VITALS: Ht 162.6 cm; Wt 90.0 kg
[~2016-10-15 15:04] MED LIST changes: +ALPRAZOLAM0.25 M2 PO; +SYMBICORT60 INHALAT IH; +WARFARIN SODIUM6 MG PO
[2016-10-15 16:19] LABS: HEMATOCRIT 33.3 % (36.0-46.0); MCH 29.1 PG (29.0-34.0); MCHC 31.8 G/DL (30.0-36.0); MCV 91.5 FL (83-99); MEAN PLAT.VOLUME 10.6 uM^3 (9.5-12.4); PLATELET COUNT 214 K/uL (156-360); RBC DIS.WIDTH-SD 43.7 % (39-53); RED BLOOD COUNT 3.64 M/uL (3.80-5.20); WHITE BLOOD COUNT 5.6 K/uL (4.1-10.2)
[2016-10-15 16:27] LABS: CHLORIDE 95 mEq/L (99-109); POTASSIUM 5.3 mEq/L (3.7-5.4); SODIUM 127 mEq/L (136-147)
[2016-10-15 16:29] LABS: GLUCOSE 162 mg/dL (70-99)
[2016-10-15 16:30] LABS: ANION GAP 6 MEQ/L (2-14)
[2016-10-15 16:33] LABS: GFR ESTIMATE (CALCULATED) 46 mL/min/
[2016-10-15 16:34] LABS: UREA NITROGEN (BUN) 13 mg/dL (9-23)
[2016-10-15 16:40] LABS: TROP-I INTERPRETATION NEGATIVE; TROPONIN-I < 0.01 ng/mL (0.0-0.30)
[2016-10-15 20:49] LABS: INTER. NORMALIZED RATIO 2.5
[2016-10-15 20:50] LABS: PROTHROMBIN TIME 26.4 (9.2-11.2)
[2016-10-15 21:41] LABS: POINT-OF-CARE METER ID UU14162513
[2016-10-15 21:43] VITALS: BP 216/93
[2016-10-15 22:28] LABS: TROP-I INTERPRETATION NEGATIVE; TROPONIN-I < 0.01 ng/mL (0.0-0.30)
[2016-10-16] VITALS (7 sets, daily range): BP systolic 146–172; BP diastolic 64–80
[2016-10-16 00:35] LABS: METH RESISTANT S AUREUS PCR POSITIVE (NEGATIVE)
[2016-10-16 00:39] LABS: PROBE CHECK PASS
[2016-10-16 06:05] LABS: HEMATOCRIT 30.2 % (36.0-46.0); MCH 29.3 PG (29.0-34.0); MCHC 32.1 G/DL (30.0-36.0); MCV 91.2 FL (83-99); MEAN PLAT.VOLUME 11.1 uM^3 (9.5-12.4); PLATELET COUNT 194 K/uL (156-360); RBC DIS.WIDTH-CV 12.8 % (11.8-14.6); RBC DIS.WIDTH-SD 42.4 % (39-53); RED BLOOD COUNT 3.31 M/uL (3.80-5.20); WHITE BLOOD COUNT 4.9 K/uL (4.1-10.2)
[2016-10-16 06:25] LABS: INTER. NORMALIZED RATIO 2.6; PROTHROMBIN TIME 26.9 (9.2-11.2)
[2016-10-16 06:27] LABS: ANION GAP 4 MEQ/L (2-14); CHLORIDE 101 MEQ/L (99-109); GFR ESTIMATE (CALCULATED) > 59 mL/min/; GLUCOSE 146 mg/dL (70-99); POTASSIUM 4.6 MEQ/L (3.7-5.4); SAMPLE HEMOLYSIS CHECK 0; SAMPLE ICTERIC CHECK 0; SAMPLE LIPEMIA CHECK 0; SODIUM 132 MEQ/L (136-147); UREA NITROGEN (BUN) 12 mg/dL (9-23)
[2016-10-16 06:33] LABS: ADD MIUA? NO; BILIRUBIN NEGATIVE; BLOOD NEGATIVE; COLOR YELLOW ((YELLOW)); GLUCOSE (STRIP) NEGATIVE; KETONES NEGATIVE; LEUKOCYTES NEGATIVE; NITRITE NEGATIVE; PROTEIN (STRIP) NEGATIVE; SPECIFIC GRAVITY 1.008 (1.000-1.030); UCUL ADDED? NO; UROBILINOGEN 0.2 MG/DL (0.2-1.0)
[2016-10-16 21:33] LABS: POINT-OF-CARE METER ID UU13113831
[2016-10-17 01:15] VITALS: BP 174/75
[2016-10-17 04:46] VITALS: BP 186/84
[2016-10-17 06:06] LABS: INTER. NORMALIZED RATIO 2.4; PROTHROMBIN TIME 25.1 (9.2-11.2)
[2016-10-17 08:17] LABS: POINT-OF-CARE METER ID UU14162513
[2016-10-17 09:10] VITALS: BP 219/75
[2016-10-17] MEDS ORDERED: CYMBALTA20 MG PO (10:16)
[2016-10-17] MEDS ORDERED: APRESOLINE50 MG PO (10:16)
[2016-10-17] MEDS ORDERED: OLMESARTAN MEDO40 MG PO (10:16)
[2016-10-17] MEDS ORDERED: WARFARIN SODIUM1 MG PO (10:18)
[2016-10-17] MEDS ORDERED: WARFARIN SODIUM4 MG PO (10:18)
[2016-10-17] MEDS ORDERED: SYMBICORT60 INHALAT IH (10:19)
[2016-10-17] MEDS ORDERED: TIZANIDINE HCL4 MG PO (10:19)
[2016-10-17 12:19] VITALS: BP 153/71
[2016-10-17 15:58] VITALS: BP 176/74
[2016-10-17 20:00] VITALS: BP 197/85
[2016-10-17 22:11] LABS: POINT-OF-CARE METER ID UU14162513
[2016-10-18 01:00] VITALS: BP 157/86
[2016-10-18 04:43] VITALS: BP 180/74
[2016-10-18 10:25] LABS: HEMATOCRIT 32.9 % (36.0-46.0); MCH 30.8 PG (29.0-34.0); MCV 90.4 FL (83-99); RBC DIS.WIDTH-CV 13.1 % (11.8-14.6); RBC DIS.WIDTH-SD 43.1 % (39-53); RED BLOOD COUNT 3.64 M/uL (3.80-5.20); WHITE BLOOD COUNT 6.2 K/uL (4.1-10.2)
[2016-10-18 10:30] VITALS: BP 179/81
[2016-10-18 10:40] LABS: MEAN PLAT.VOLUME 11.1 uM^3 (9.5-12.4); PLATELET COUNT 236 K/uL (156-360)
[2016-10-18 10:52] LABS: INTER. NORMALIZED RATIO 1.9; PROTHROMBIN TIME 20.1 (9.2-11.2)
[2016-10-18 10:56] LABS: ANION GAP 8 MEQ/L (2-14); CHLORIDE 97 MEQ/L (99-109); POTASSIUM 4.3 MEQ/L (3.7-5.4); SAMPLE HEMOLYSIS CHECK 0; SAMPLE ICTERIC CHECK 0; SAMPLE LIPEMIA CHECK 0; SODIUM 136 MEQ/L (136-147)
[2016-10-18 11:02] LABS: GFR ESTIMATE (CALCULATED) > 59 mL/min/; GLUCOSE 181 mg/dL (70-99); UREA NITROGEN (BUN) 8 mg/dL (9-23)
[2016-10-18 12:05] VITALS: BP 148/69
[2016-10-18 12:30] LABS: POINT-OF-CARE METER ID UU13113700
[2016-10-18] MEDS ORDERED: MYCOSTATIN 100,60 ML PO (14:44)
[2016-10-18] MEDS ORDERED: CEFTIN500 MG PO (14:44)
[2016-10-18] MEDS ORDERED: COLACE100 MG PO (14:46)
[2016-10-18] MEDS ORDERED: MYCOSTATIN1 APPLICAT TP (14:47)
[2016-10-18 17:09] LABS: POINT-OF-CARE METER ID UU14162513
== END 2016-10-18 18:47 | disposition home or self-care (01) | DRG 948 ==
LOC: EME 15:04 → EDOF 18:01 → 5WEST 18:01 → EDOF 18:01 → 5WEST 21:00
PROVIDERS: Emergency Medicine; Hospitalist; Internal Medicine
DX: R53.1 Weakness (principal); R55 Syncope and collapse; E86.0 Dehydration; I95.9 Hypotension, unspecified; E87.1 Hypo-osmolality and hyponatremia; R10.9 Unspecified abdominal pain; J44.9 Chronic obstructive pulmonary disease, unspecified; E78.5 Hyperlipidemia, unspecified; I25.10 Atherosclerotic heart disease of native coronary artery without angina pectoris; F41.9 Anxiety disorder, unspecified; J32.9 Chronic sinusitis, unspecified; Z96.652 Presence of left artificial knee joint; I12.9 Hypertensive chronic kidney disease with stage 1 through stage 4 chronic kidney disease, or unspecified chronic kidney disease; L98.9 Disorder of the skin and subcutaneous tissue, unspecified; N18.9 Chronic kidney disease, unspecified; E11.22 Type 2 diabetes mellitus with diabetic chronic kidney disease; K21.9 Gastro-esophageal reflux disease without esophagitis; E78.00 Pure hypercholesterolemia, unspecified; F32.9 Major depressive disorder, single episode, unspecified; D64.9 Anemia, unspecified; I25.2 Old myocardial infarction; J98.11 Atelectasis; Z79.51 Long term (current) use of inhaled steroids; Z79.84 Long term (current) use of oral hypoglycemic drugs; Z79.899 Other long term (current) drug therapy; Z86.718 Personal history of other venous thrombosis and embolism; Z86.711 Personal history of pulmonary embolism; Z87.891 Personal history of nicotine dependence; Z95.1 Presence of aortocoronary bypass graft; Z79.01 Long term (current) use of anticoagulants; R00.1 Bradycardia, unspecified
CPT/HCPCS: 71020; 80048; 81003; 82948; 84443; 84484; 85027; 85610; 87040; 87077; 87086; 87186; 87641; 93005; 99202; 99281; 99285; G0378; J1815; J7030

== ENCOUNTER 2017-09-16 18:38 | Emergency (ER) | payer OTHER ==
[~2017-09-16] VITALS: Ht 162.6 cm; Wt 85.2 kg
[~2017-09-16 18:38] MED LIST changes: +APRESOLINE50 MG PO; +CEFTIN500 MG PO; +CYMBALTA20 MG PO; +MYCOSTATIN 100,60 ML PO; +MYCOSTATIN1 APPLICAT TP; +OLMESARTAN MEDO40 MG PO
[2017-09-16 19:26] LABS: HEMATOCRIT 37.2 % (36.0-46.0); HEMOGLOBIN 12.6 G/DL (11.9-15.5); MCH 29.9 PG (29.0-34.0); MCHC 33.9 G/DL (30.0-36.0); MCV 88.2 FL (83-99); RBC DIS.WIDTH-CV 13.6 % (11.8-14.6); RBC DIS.WIDTH-SD 43.8 % (39-53); RED BLOOD COUNT 4.22 M/uL (3.80-5.20); WHITE BLOOD COUNT 8.8 K/uL (4.1-10.2)
[2017-09-16 19:34] LABS: CHLORIDE 97 mEq/L (99-109); POTASSIUM 4.7 mEq/L (3.7-5.4); SODIUM 133 mEq/L (136-147)
[2017-09-16 19:35] LABS: GLUCOSE 128 mg/dL (70-99)
[2017-09-16 19:40] LABS: CREATININE 0.8 mg/dL (0.6-1.3); GFR ESTIMATE (CALCULATED) > 59 mL/min/; UREA NITROGEN (BUN) 11 mg/dL (9-23)
[2017-09-16 20:10] LABS: HEMATOLOGY COMMENT 1 SN; PLAT.SUFFICIENCY ADEQUATE; PLATELET COUNT 249 K/uL (156-360)
[2017-09-16 20:22] LABS: TROP-I INTERPRETATION NEGATIVE; TROPONIN-I < 0.01 ng/mL (0.0-0.30)
[2017-09-17 00:12] VITALS: BP 208/91
== END 2017-09-17 00:12 | disposition home or self-care (01) ==
LOC: EME 18:38
PROVIDERS: Physician Assistant
DX: R51 Headache (principal); I10 Essential (primary) hypertension; J44.9 Chronic obstructive pulmonary disease, unspecified; K21.9 Gastro-esophageal reflux disease without esophagitis; E78.5 Hyperlipidemia, unspecified; E11.9 Type 2 diabetes mellitus without complications; I25.10 Atherosclerotic heart disease of native coronary artery without angina pectoris; I25.2 Old myocardial infarction; F41.9 Anxiety disorder, unspecified; F32.9 Major depressive disorder, single episode, unspecified; Z87.442 Personal history of urinary calculi; Z86.718 Personal history of other venous thrombosis and embolism; Z87.891 Personal history of nicotine dependence; Z95.1 Presence of aortocoronary bypass graft; Z90.49 Acquired absence of other specified parts of digestive tract; Z79.84 Long term (current) use of oral hypoglycemic drugs; Z79.01 Long term (current) use of anticoagulants; Z88.2 Allergy status to sulfonamides; Z88.1 Allergy status to other antibiotic agents; Z91.040 Latex allergy status
CPT/HCPCS: 70450; 71046; 80048; 84484; 85027; 93005; 94640; 99281; 99284; J1885; J7512

== ENCOUNTER 2017-11-07 17:48 | Inpatient (IN) | payer OTHER ==
[~2017-11-07] VITALS: Ht 165.1 cm; Wt 84.4 kg
[2017-11-07 18:58] LABS: HEMATOCRIT 31.3 % (36.0-46.0); HEMOGLOBIN 10.7 G/DL (11.9-15.5); MCH 29.2 PG (29.0-34.0); MCHC 34.2 G/DL (30.0-36.0); MCV 85.5 FL (83-99); PLATELET COUNT 242 K/uL (156-360); RBC DIS.WIDTH-CV 12.8 % (11.8-14.6); RBC DIS.WIDTH-SD 39.9 % (39-53); RED BLOOD COUNT 3.66 M/uL (3.80-5.20); WHITE BLOOD COUNT 7.4 K/uL (4.1-10.2)
[2017-11-07 19:06] LABS: PTT 32.5 SEC (25-37)
[2017-11-07 19:08] LABS: ALBUMIN 3.8 g/dL (3.2-4.8); CHLORIDE 93 mEq/L (99-109); POTASSIUM 3.8 mEq/L (3.7-5.4); SODIUM 132 mEq/L (136-147)
[2017-11-07 19:11] LABS: GLUCOSE 129 mg/dL (70-99); TOTAL PROTEIN 7.2 g/dL (6.4-8.3)
[2017-11-07 19:12] LABS: SITE LR
[2017-11-07 19:13] LABS: BASE EXCESS 6.6 mEq/L (-3 to +3); BICARBONATE 31.9 mEq/L (22-26); CARBOXY HGB 1.5 % (0-5); COMMENTS - BLOOD GASES C+ A+; DEVICE RA; METHEMOGLOBIN 1 % (0-1.5); O2 SATURATION (CALCULATED) 91.7 % (95-99); PCO2 48 mm Hg (35-45); PO2 56 mm Hg (80-100); pH 7.43 (7.35-7.45)
[2017-11-07 19:13] LABS: TOTAL BILIRUBIN 0.3 mg/dL (0.0-1.0)
[2017-11-07 19:14] LABS: ALKALINE PHOSPHATASE 78 IU/L (3-129)
[2017-11-07 19:15] LABS: CREATININE 0.7 mg/dL (0.6-1.3); GFR ESTIMATE (CALCULATED) > 59 mL/min/
[2017-11-07 19:16] LABS: AST (GOT) 13 IU/L (2-34); UREA NITROGEN (BUN) 7 mg/dL (9-23)
[2017-11-07 19:18] LABS: ALT (GPT) 11 IU/L (3-49)
[2017-11-07 19:19] LABS: TROP-I INTERPRETATION NEGATIVE; TROPONIN-I < 0.01 ng/mL (0.0-0.30)
[2017-11-07] MEDS ORDERED: LOSARTAN POTAS100 MG PO (22:12)
[2017-11-07] MEDS ORDERED: FERROUS SULFAT325 MG PO (22:12)
[2017-11-07] MEDS ORDERED: DULOXETINE HCL20 MG PO (22:13)
[2017-11-07] MEDS ORDERED: METHOCARBAMOL500 MG PO (22:14)
[2017-11-07] MEDS ORDERED: CARVEDILOL25 MG PO (22:16)
[2017-11-07] MEDS ORDERED: ATORVASTATIN CA20 MG PO (22:17)
[2017-11-07] MEDS ORDERED: ANTIVERT12.5 MG PO (22:34)
[2017-11-07] MEDS ORDERED: ZOFRAN4 MG PO (22:35)
[2017-11-07] MEDS ORDERED: ALBUTEROL2.5 MG/3 M IH (22:37)
[2017-11-08] VITALS (7 sets, daily range): BP systolic 128–221; BP diastolic 70–102
[2017-11-08 01:20] LABS: TROP-I INTERPRETATION NEGATIVE; TROPONIN-I < 0.01 ng/mL (0.0-0.30)
[2017-11-08 06:48] LABS: HEMATOCRIT 29.4 % (36.0-46.0); HEMOGLOBIN 10.1 G/DL (11.9-15.5); MCH 29.2 PG (29.0-34.0); MCHC 34.4 G/DL (30.0-36.0); PLATELET COUNT 238 K/uL (156-360); RBC DIS.WIDTH-CV 12.9 % (11.8-14.6); RBC DIS.WIDTH-SD 39.3 % (39-53); RED BLOOD COUNT 3.46 M/uL (3.80-5.20); WHITE BLOOD COUNT 6.1 K/uL (4.1-10.2)
[2017-11-08 07:08] LABS: ALBUMIN 3.5 G/DL (3.2-4.8); ALKALINE PHOSPHATASE 70 IU/L (3-129); ALT (GPT) 9 IU/L (3-49); AST (GOT) 11 IU/L (2-34); CHLORIDE 93 MEQ/L (99-109); CREATININE 0.5 MG/DL (0.6-1.3); GFR ESTIMATE (CALCULATED) > 59 mL/min/; SODIUM 130 MEQ/L (136-147); TOTAL BILIRUBIN 0.3 MG/DL (0.0-1.0); TOTAL PROTEIN 6.5 G/DL (6.4-8.3); UREA NITROGEN (BUN) 7 mg/dL (9-23)
[2017-11-08 07:14] LABS: TROP-I INTERPRETATION NEGATIVE; TROPONIN-I 0.02 ng/mL (0.0-0.30)
[2017-11-08 07:15] LABS: GLUCOSE 196 mg/dL (70-99)
[2017-11-09] VITALS (7 sets, daily range): BP systolic 148–200; BP diastolic 80–92
[2017-11-09 06:48] LABS: INTER. NORMALIZED RATIO 2.1
[2017-11-10 03:11] VITALS: BP 160/75
[2017-11-10 06:36] LABS: INTER. NORMALIZED RATIO 2.7
[2017-11-10 07:15] VITALS: BP 188/86
[2017-11-10 10:55] VITALS: BP 178/74
[2017-11-10] MEDS ORDERED: CARVEDILOL25 MG PO (11:27)
[2017-11-10] MEDS ORDERED: APRESOLINE50 MG PO (11:27)
[2017-11-10] MEDS ORDERED: MEDROL DOSEPAK4 MG PO (11:30)
[2017-11-10] MEDS ORDERED: LEVOFLOXACIN750 MG PO (11:44)
[2017-11-10] MEDS ORDERED: TESSALON200 MG PO (12:14)
== END 2017-11-10 17:20 | disposition home health service (06) | DRG 191 ==
LOC: EME 17:48 → 5EAST 21:00 → EDOF 21:00 → ENRESERV 21:05 → 5EAST 22:53
PROVIDERS: Emergency Medicine; Internal Medicine; Physician Assistant
DX: J44.1 Chronic obstructive pulmonary disease with (acute) exacerbation (principal); E87.1 Hypo-osmolality and hyponatremia; R19.7 Diarrhea, unspecified; I12.9 Hypertensive chronic kidney disease with stage 1 through stage 4 chronic kidney disease, or unspecified chronic kidney disease; E11.22 Type 2 diabetes mellitus with diabetic chronic kidney disease; N18.9 Chronic kidney disease, unspecified; F32.9 Major depressive disorder, single episode, unspecified; K21.9 Gastro-esophageal reflux disease without esophagitis; I25.10 Atherosclerotic heart disease of native coronary artery without angina pectoris; G43.909 Migraine, unspecified, not intractable, without status migrainosus; F41.9 Anxiety disorder, unspecified; D64.9 Anemia, unspecified; E78.5 Hyperlipidemia, unspecified; Z96.652 Presence of left artificial knee joint; Z95.1 Presence of aortocoronary bypass graft; Z86.718 Personal history of other venous thrombosis and embolism; Z79.01 Long term (current) use of anticoagulants; I25.2 Old myocardial infarction; Z88.2 Allergy status to sulfonamides; Z91.040 Latex allergy status; Z87.891 Personal history of nicotine dependence; Z88.1 Allergy status to other antibiotic agents
CPT/HCPCS: 36600; 71046; 74176; 80053; 82948; 83605; 83880; 84484; 85027; 85610; 85730; 87040; 87177; 87329; 87493; 87506; 93005; 94640; 94644; 94799; 99281; 99285; J1815; J1956; J2405; J2930; J7030; J7512

== ENCOUNTER 2017-12-08 16:50 | Inpatient (IN) | payer OTHER ==
[~2017-12-08] VITALS: Ht 162.6 cm; Wt 85.2 kg
[~2017-12-08 16:50] MED LIST changes: +ALBUTEROL2.5 MG/3 M IH; +ANTIVERT12.5 MG PO; +ATORVASTATIN CA20 MG PO; +CARVEDILOL25 MG PO; +DULOXETINE HCL20 MG PO; -GABAPENTIN300 MG PO; +GABAPENTIN400 MG PO; +LEVOFLOXACIN750 MG PO; +MEDROL DOSEPAK4 MG PO; +METHOCARBAMOL500 MG PO; +TESSALON200 MG PO; +ZOFRAN4 MG PO
[2017-12-08 17:57] LABS: HEMATOCRIT 34.9 % (36.0-46.0); HEMOGLOBIN 11.8 G/DL (11.9-15.5); MCH 29.2 PG (29.0-34.0); MCHC 33.8 G/DL (30.0-36.0); MCV 86.4 FL (83-99); PLATELET COUNT 292 K/uL (156-360); RBC DIS.WIDTH-CV 14.1 % (11.8-14.6); RBC DIS.WIDTH-SD 44.5 % (39-53); RED BLOOD COUNT 4.04 M/uL (3.80-5.20); WHITE BLOOD COUNT 5.7 K/uL (4.1-10.2)
[2017-12-08 18:05] LABS: ALBUMIN 4.2 g/dL (3.2-4.8)
[2017-12-08 18:06] LABS: CHLORIDE 91 mEq/L (99-109); POTASSIUM 4.2 mEq/L (3.7-5.4); SODIUM 126 mEq/L (136-147)
[2017-12-08 18:08] LABS: GLUCOSE 147 mg/dL (70-99); TOTAL PROTEIN 7.6 g/dL (6.4-8.3)
[2017-12-08 18:10] LABS: TOTAL BILIRUBIN 0.3 mg/dL (0.0-1.0)
[2017-12-08 18:11] LABS: ALKALINE PHOSPHATASE 75 IU/L (3-129)
[2017-12-08 18:12] LABS: CREATININE 0.8 mg/dL (0.6-1.3); GFR ESTIMATE (CALCULATED) > 59 mL/min/
[2017-12-08 18:13] LABS: AST (GOT) 16 IU/L (2-34); UREA NITROGEN (BUN) 9 mg/dL (9-23)
[2017-12-08 18:15] LABS: ALT (GPT) 17 IU/L (3-49)
[2017-12-08 18:18] LABS: TROP-I INTERPRETATION NEGATIVE; TROPONIN-I < 0.01 ng/mL (0.0-0.30)
[2017-12-08 18:33] LABS: INTER. NORMALIZED RATIO 2.2
[2017-12-08 18:35] LABS: PTT 36.8 SEC (25-37)
[2017-12-08] MEDS ORDERED: COREG25 M1 PO (21:03)
[2017-12-08] MEDS ORDERED: BENADRYL25 MG PO (21:06)
[2017-12-08] MEDS ORDERED: COLACE100 MG PO (21:08)
[2017-12-08] MEDS ORDERED: HYDRALAZINE HCL50 MG PO (21:13)
[2017-12-08] MEDS ORDERED: HYZAAR 100-21 TABLET PO (21:14)
[2017-12-08 22:16] VITALS: BP 202/89
[2017-12-09 04:12] VITALS: BP 91/44
[2017-12-09 05:54] LABS: INTER. NORMALIZED RATIO 2.2
[2017-12-09 06:07] LABS: ALBUMIN 3.3 G/DL (3.2-4.8); ALKALINE PHOSPHATASE 51 IU/L (3-129); ALT (GPT) 10 IU/L (3-49); AST (GOT) 11 IU/L (2-34); CHLORIDE 90 MEQ/L (99-109); CREATININE 0.8 MG/DL (0.6-1.3); GFR ESTIMATE (CALCULATED) > 59 mL/min/; GLUCOSE 111 mg/dL (70-99); POTASSIUM 3.8 MEQ/L (3.7-5.4); SODIUM 126 MEQ/L (136-147); TOTAL BILIRUBIN 0.3 MG/DL (0.0-1.0); TOTAL PROTEIN 5.9 G/DL (6.4-8.3); UREA NITROGEN (BUN) 11 mg/dL (9-23)
[2017-12-09 06:09] LABS: HEMATOCRIT 29.2 % (36.0-46.0); MCH 29.1 PG (29.0-34.0); MCHC 33.6 G/DL (30.0-36.0); MCV 86.6 FL (83-99); PLATELET COUNT 250 K/uL (156-360); RBC DIS.WIDTH-SD 44.4 % (39-53); RED BLOOD COUNT 3.37 M/uL (3.80-5.20); WHITE BLOOD COUNT 6.8 K/uL (4.1-10.2)
[2017-12-09 06:14] LABS: HEMOGLOBIN 9.8 G/DL (11.9-15.5)
[2017-12-09 08:00] VITALS: BP 93/51
[2017-12-09 12:00] VITALS: BP 105/56
[2017-12-09 16:00] VITALS: BP 127/61
[2017-12-09 19:25] VITALS: BP 109/55
[2017-12-09 23:52] VITALS: BP 128/65
[2017-12-10 03:45] VITALS: BP 148/62
[2017-12-10 05:25] LABS: BASOPHIL (%) 0.4 % (0-1); EOSINOPHIL (%) 0.2 % (0-5); HEMATOCRIT 28.3 % (36.0-46.0); HEMOGLOBIN 9.5 G/DL (11.9-15.5); IMMATURE GRANULOCYTE (%) 0.5 % (0.0-0.7); LYMPHOCYTE (%) 42.1 % (15-42); LYMPHOCYTE COUNT 2.3 K/uL (1.0-2.8); MCH 29.1 PG (29.0-34.0); MCHC 33.6 G/DL (30.0-36.0); MCV 86.8 FL (83-99); MONOCYTE (%) 11.4 % (3-12); MONOCYTE COUNT 0.6 K/uL (0-0.8); NEUTROPHIL (%) 45.4 % (45-76); NEUTROPHIL COUNT 2.5 K/uL (1.8-6.4); PLATELET COUNT 228 K/uL (156-360); RED BLOOD COUNT 3.26 M/uL (3.80-5.20); WHITE BLOOD COUNT 5.5 K/uL (4.1-10.2)
[2017-12-10 06:06] LABS: CHLORIDE 92 MEQ/L (99-109); CREATININE 0.7 MG/DL (0.6-1.3); GFR ESTIMATE (CALCULATED) > 59 mL/min/; GLUCOSE 110 mg/dL (70-99); POTASSIUM 4.2 MEQ/L (3.7-5.4); SODIUM 126 MEQ/L (136-147); UREA NITROGEN (BUN) 13 mg/dL (9-23)
[2017-12-10 07:31] VITALS: BP 184/85
[2017-12-10 08:11] LABS: APPEARANCE CLEAR ((CLEAR)); BILIRUBIN NEGATIVE; BLOOD NEGATIVE; COLOR STRAW ((YELLOW)); GLUCOSE (STRIP) NEGATIVE; KETONES NEGATIVE; LEUKOCYTES NEGATIVE; NITRITE NEGATIVE; PROTEIN (STRIP) NEGATIVE; SPECIFIC GRAVITY 1.006 (1.000-1.030); UCUL ADDED? NO; UROBILINOGEN 0.2 MG/DL (0.2-1.0)
[2017-12-10 11:22] VITALS: BP 180/82
[2017-12-10 15:11] VITALS: BP 179/79
[2017-12-10 16:36] LABS: INTER. NORMALIZED RATIO 2.2
[2017-12-10 19:20] VITALS: BP 190/86
[2017-12-10 23:27] VITALS: BP 146/65
[2017-12-11 03:46] VITALS: BP 165/68
[2017-12-11 05:42] LABS: INTER. NORMALIZED RATIO 2.4
[2017-12-11 05:49] LABS: BASOPHIL (%) 0.4 % (0-1); EOSINOPHIL (%) 0 % (0-5); HEMATOCRIT 31.9 % (36.0-46.0); HEMOGLOBIN 10.8 G/DL (11.9-15.5); IMMATURE GRANULOCYTE (%) 0.6 % (0.0-0.7); LYMPHOCYTE (%) 32.2 % (15-42); LYMPHOCYTE COUNT 2.3 K/uL (1.0-2.8); MCH 29.9 PG (29.0-34.0); MCHC 33.9 G/DL (30.0-36.0); MCV 88.4 FL (83-99); MONOCYTE (%) 12.1 % (3-12); MONOCYTE COUNT 0.9 K/uL (0-0.8); NEUTROPHIL (%) 54.7 % (45-76); NEUTROPHIL COUNT 3.8 K/uL (1.8-6.4); PLATELET COUNT 267 K/uL (156-360); RBC DIS.WIDTH-CV 14.6 % (11.8-14.6); RBC DIS.WIDTH-SD 46.5 % (39-53); RED BLOOD COUNT 3.61 M/uL (3.80-5.20)
[2017-12-11 06:17] LABS: CHLORIDE 94 MEQ/L (99-109); CREATININE 0.8 MG/DL (0.6-1.3); GFR ESTIMATE (CALCULATED) > 59 mL/min/; GLUCOSE 104 mg/dL (70-99); POTASSIUM 4.4 MEQ/L (3.7-5.4); SODIUM 130 MEQ/L (136-147); UREA NITROGEN (BUN) 13 mg/dL (9-23)
[2017-12-11 08:48] VITALS: BP 162/94
[2017-12-11 12:18] VITALS: BP 148/67
[2017-12-11] MEDS ORDERED: CLONIDINE1 EACH TD (12:38)
[2017-12-11] MEDS ORDERED: APRESOLINE50 MG PO (12:39)
[2017-12-11] MEDS ORDERED: LOSARTAN POTAS100 MG PO (12:39)
[2017-12-11] MEDS ORDERED: GABAPENTIN300 MG PO (12:39)
[2017-12-11 15:45] VITALS: BP 159/78
== END 2017-12-11 16:01 | disposition home or self-care (01) | DRG 641 ==
LOC: EME 16:50 → EDOF 20:31 → 4SOUTH 20:31
PROVIDERS: Internal Medicine; Internal Medicine Nephrology; Physician Assistant
DX: E87.1 Hypo-osmolality and hyponatremia (principal); I16.0 Hypertensive urgency; I12.9 Hypertensive chronic kidney disease with stage 1 through stage 4 chronic kidney disease, or unspecified chronic kidney disease; E87.6 Hypokalemia; E78.5 Hyperlipidemia, unspecified; I25.10 Atherosclerotic heart disease of native coronary artery without angina pectoris; J44.9 Chronic obstructive pulmonary disease, unspecified; K21.9 Gastro-esophageal reflux disease without esophagitis; Z96.652 Presence of left artificial knee joint; T50.2X5A Adverse effect of carbonic-anhydrase inhibitors, benzothiadiazides and other diuretics, initial encounter; G43.909 Migraine, unspecified, not intractable, without status migrainosus; E11.22 Type 2 diabetes mellitus with diabetic chronic kidney disease; N18.3 Chronic kidney disease, stage 3 (moderate); N27.0 Small kidney, unilateral; Z79.01 Long term (current) use of anticoagulants; Z86.718 Personal history of other venous thrombosis and embolism; Z87.891 Personal history of nicotine dependence; I25.2 Old myocardial infarction; Z80.0 Family history of malignant neoplasm of digestive organs; Z87.442 Personal history of urinary calculi; Z82.49 Family history of ischemic heart disease and other diseases of the circulatory system; Z79.84 Long term (current) use of oral hypoglycemic drugs; Z95.1 Presence of aortocoronary bypass graft; Z90.710 Acquired absence of both cervix and uterus; Z90.49 Acquired absence of other specified parts of digestive tract; Y92.89 Other specified places as the place of occurrence of the external cause
CPT/HCPCS: 70450; 71046; 76770; 80048; 80053; 81003; 82533 91; 82948; 83935; 84300; 84484; 85025; 85027; 85610; 85730; 93005; 93975; 99281; 99285; G0378; J0360; J1815; J7040